=== PATIENT | female | born 1935 | race Two or more races ===

== ENCOUNTER → 2019-06-18 | Outpatient (CLI) | payer MEDICARE ==
[2019-06-18 10:03] LABS: Basophils # (auto) 0 uL; Basophils % (auto) 0.6 % (0.0-2.0); Eosinophils # (auto) 0.1 uL; Hematocrit 40.2 % (36.0-46.0); Hemoglobin 13.4 g/dL (12.2-16.2); Lymphocytes # (auto) 1.6 uL; Lymphocytes % (auto) 37.2 % (10.0-50.0); Mean Corpuscular Hemoglobin 29.9 pg (28.0-32.0); Mean Corpuscular Hgb Conc. 33.2 g/dL (32.0-36.0); Mean Corpuscular Volume 90.1 fL (80.0-100.0); Monocytes # (auto) 0.3 uL; Monocytes % (auto) 7.3 % (0.0-12.0); Neutrophils # (auto) 2.2 uL; Neutrophils % (auto) 51.9 % (37.0-80.0); Nucleated Red Blood Cells % 0.1 %; Platelet Count (auto) 120 10^3/uL (140-450); Red Blood Cells 4.47 10^6/uL (4.0-5.20); Red Cell Distribution Width 13.3 % (11.8-14.3); White Blood Cell 4.2 10^3/uL (4.4-10.8)
[2019-06-18 10:21] LABS: Potassium 4.5 mmol/L (3.5-5.1)
[2019-06-18 10:39] LABS: BUN/Creatinine Ratio 21.8; Bilirubin, Total 0.4 mg/dL (0.2-1.0); Calcium 9.6 mg/dL (8.5-10.1); Total Protein 7.8 g/dL (6.4-8.2)
[2019-06-18 10:50] LABS: INR 0.98 (0.9-1.15)
== END | disposition home or self-care (01) ==
LOC: LAB 09:28
DX: R91.1 Solitary pulmonary nodule (principal); B44.89 Other forms of aspergillosis; J67.9 Hypersensitivity pneumonitis due to unspecified organic dust; E78.5 Hyperlipidemia, unspecified
CPT/HCPCS: 36415; 80053; 83520; 85025; 85610; 85730; 86038; 86256

== ENCOUNTER → 2020-09-06 | Outpatient (CLI) | payer MEDICARE ==
[2020-09-06 09:22] LABS: Basophils # (auto) 0.2 10 ^3/uL (0-0.2); Basophils % (auto) 3.4 % (0.0-2.0); Eosinophils # (auto) 0.2 10 ^3/uL (0-0.8); Eosinophils % (auto) 3.3 % (0.0-7.0); Hematocrit 41.6 % (36.0-46.0); Hemoglobin 13.8 g/dL (12.2-16.2); Lymphocytes # (auto) 1.7 10 ^3/uL (0.4-5.4); Lymphocytes % (auto) 32.9 % (10.0-50.0); Mean Corpuscular Hemoglobin 29.4 pg (28.0-32.0); Monocytes # (auto) 0.4 10 ^3/uL (0-1.3); Monocytes % (auto) 7.2 % (0.0-12.0); Neutrophils # (auto) 2.7 10 ^3/uL (1.6-8.6); Neutrophils % (auto) 53.2 % (37.0-80.0); Nucleated Red Blood Cells % 0.1 %; Platelet Count (auto) 132 10^3/uL (140-450); Red Blood Cells 4.68 10^6/uL (4.0-5.20); Red Cell Distribution Width 13.5 % (11.8-14.3); White Blood Cell 5.1 10^3/uL (4.4-10.8)
[2020-09-06 09:32] LABS: Albumin 3.7 g/dL (3.4-5.0); Calcium 9.2 mg/dL (8.5-10.1); Potassium 4.2 mmol/L (3.5-5.1)
[2020-09-06 09:37] LABS: BUN/Creatinine Ratio 18.6; Bilirubin, Total 0.6 mg/dL (0.2-1.0); Total Protein 7.2 g/dL (6.4-8.2)
[2020-09-07 08:19] LABS: Urine Bacteria MANY /hpf (None Seen); Urine Blood Negative /uL (Negative); Urine Specific Gravity 1.014 (1.001-1.035); Urine WBC 57 /hpf (0 - 5)
[2020-09-07 08:52] LABS: Protein, Urine 10.6 mg/dL (0.0-11.9)
[2020-09-07 09:03] LABS: Micro Albumin 8.09 mg/L (0-30.0)
== END | disposition home or self-care (01) ==
LOC: LAB 08:54
PROVIDERS: ATTEND Internal Medicine
DX: I12.9 Hypertensive chronic kidney disease with stage 1 through stage 4 chronic kidney disease, or unspecified chronic kidney disease (principal); E11.22 Type 2 diabetes mellitus with diabetic chronic kidney disease; N18.9 Chronic kidney disease, unspecified; E11.65 Type 2 diabetes mellitus with hyperglycemia; E03.9 Hypothyroidism, unspecified; E78.49 Other hyperlipidemia; M85.80 Other specified disorders of bone density and structure, unspecified site; Z00.01 Encounter for general adult medical examination with abnormal findings
CPT/HCPCS: 36415; 80053; 80061; 81001; 82043; 82306; 82570; 83036; 84156; 84439; 84443; 85025

== ENCOUNTER → 2021-05-02 | Emergency (ER) | payer MEDICARE ==
[~2021-05-02] VITALS: Ht 160 cm; Wt 69.4 kg
[2021-05-02 14:03] VITALS: BP 163/58
[2021-05-02 15:16] LABS: Basophils # (auto) 0.1 10 ^3/uL (0-0.2); Basophils % (auto) 0.7 % (0.0-2.0); Eosinophils # (auto) 0.2 10 ^3/uL (0-0.8); Eosinophils % (auto) 2.3 % (0.0-7.0); Hematocrit 43.1 % (36.0-46.0); Hemoglobin 14.2 g/dL (12.2-16.2); Lymphocytes # (auto) 1.2 10 ^3/uL (0.4-5.4); Lymphocytes % (auto) 12.7 % (10.0-50.0); Mean Corpuscular Hemoglobin 29.4 pg (28.0-32.0); Mean Corpuscular Hgb Conc. 32.9 g/dL (32.0-36.0); Mean Corpuscular Volume 89.4 fL (80.0-100.0); Monocytes # (auto) 0.8 10 ^3/uL (0-1.3); Monocytes % (auto) 8.6 % (0.0-12.0); Neutrophils # (auto) 7.2 10 ^3/uL (1.6-8.6); Neutrophils % (auto) 75.7 % (37.0-80.0); Nucleated Red Blood Cells % 0.1 %; Red Blood Cells 4.82 10^6/uL (4.0-5.20); Red Cell Distribution Width 13.3 % (11.8-14.3); White Blood Cell 9.6 10^3/uL (4.4-10.8)
[2021-05-02 15:20] LABS: Albumin 3.9 g/dL (3.4-5.0); Calcium 9.1 mg/dL (8.5-10.1); Potassium 4.1 mmol/L (3.5-5.1)
[2021-05-02 15:34] LABS: BUN/Creatinine Ratio 16.8; Bilirubin, Total 0.6 mg/dL (0.2-1.0); CRP High Sensitivity 2.46 mg/dL (< 0.3); Total Protein 8.1 g/dL (6.4-8.2)
== END | disposition home or self-care (01) ==
LOC: ER 14:01
DX: J06.9 Acute upper respiratory infection, unspecified (principal); R05.9 Cough, unspecified; I10 Essential (primary) hypertension; E11.9 Type 2 diabetes mellitus without complications; Z90.89 Acquired absence of other organs
CPT/HCPCS: 36415; 71250; 80053; 82728; 83880; 84484; 85025; 86141

== ENCOUNTER 2021-08-21 06:20 | Outpatient (CLI) | payer MEDICARE | END 2021-08-21 06:30 | disposition home or self-care (01) | LOC: LAB 06:20 | PROVIDERS: ATTEND Pathology Anatomic Pathology & Clinical Pathology | DX: Z20.822 Contact with and (suspected) exposure to COVID-19 (principal) | CPT/HCPCS: C9803; U0003 ==

== ENCOUNTER → 2021-12-29 | Outpatient (CLI) | payer MEDICARE, MEDICAID ==
[2021-12-29 09:14] LABS: Basophils # (auto) 0 10 ^3/uL (0-0.2); Basophils % (auto) 0.7 % (0.0-2.0); Eosinophils # (auto) 0.1 10 ^3/uL (0-0.8); Eosinophils % (auto) 2.4 % (0.0-7.0); Hematocrit 40.7 % (36.0-46.0); Hemoglobin 12.9 g/dL (12.2-16.2); Lymphocytes # (auto) 1.9 10 ^3/uL (0.4-5.4); Lymphocytes % (auto) 34.4 % (10.0-50.0); Mean Corpuscular Hemoglobin 28.9 pg (28.0-32.0); Mean Corpuscular Hgb Conc. 31.7 g/dL (32.0-36.0); Mean Corpuscular Volume 91.2 fL (80.0-100.0); Monocytes # (auto) 0.4 10 ^3/uL (0-1.3); Monocytes % (auto) 7.2 % (0.0-12.0); Neutrophils # (auto) 3.1 10 ^3/uL (1.6-8.6); Neutrophils % (auto) 55.3 % (37.0-80.0); Nucleated Red Blood Cells % 0.3 %; Red Blood Cells 4.46 10^6/uL (4.0-5.20); White Blood Cell 5.6 10^3/uL (4.4-10.8)
[2021-12-29 09:20] LABS: Urine Bacteria FEW /hpf (None Seen); Urine Blood TRACE /uL (Negative); Urine Budding Yeast MANY /hpf (None Seen); Urine Specific Gravity 1.013 (1.001-1.035); Urine WBC 480 /hpf (0 - 5); Urine WBC Clumps PRESENT /hpf (None Seen)
[2021-12-29 09:43] LABS: Albumin 3.8 g/dL (3.4-5.0); Calcium 9.1 mg/dL (8.5-10.1); Potassium 4.2 mmol/L (3.5-5.1)
[2021-12-29 09:48] LABS: BUN/Creatinine Ratio 19.8; Bilirubin, Total 0.7 mg/dL (0.2-1.0); Total Protein 7.2 g/dL (6.4-8.2)
[2021-12-29 09:49] LABS: Protein, Urine 26.7 mg/dL (0.0-11.9)
== END | disposition home or self-care (01) ==
LOC: LAB 09:01
PROVIDERS: ATTEND Internal Medicine
DX: E11.22 Type 2 diabetes mellitus with diabetic chronic kidney disease (principal); I12.9 Hypertensive chronic kidney disease with stage 1 through stage 4 chronic kidney disease, or unspecified chronic kidney disease; N18.30 Chronic kidney disease, stage 3 unspecified; Z00.01 Encounter for general adult medical examination with abnormal findings
CPT/HCPCS: 36415; 80053; 80061; 81001; 82306; 82570; 83036; 84156; 84439; 84443; 85025

== ENCOUNTER → 2022-01-12 | Outpatient (CLI) | payer MEDICARE, MEDICAID ==
[2022-01-12 09:48] LABS: Basophils # (auto) 0.1 10 ^3/uL (0-0.2); Basophils % (auto) 0.7 % (0.0-2.0); Eosinophils # (auto) 0.5 10 ^3/uL (0-0.8); Eosinophils % (auto) 5.7 % (0.0-7.0); Hematocrit 40.2 % (36.0-46.0); Lymphocytes # (auto) 1.8 10 ^3/uL (0.4-5.4); Lymphocytes % (auto) 22.8 % (10.0-50.0); Mean Corpuscular Hemoglobin 29.2 pg (28.0-32.0); Mean Corpuscular Hgb Conc. 32.3 g/dL (32.0-36.0); Mean Corpuscular Volume 90.3 fL (80.0-100.0); Monocytes # (auto) 0.5 10 ^3/uL (0-1.3); Monocytes % (auto) 6.2 % (0.0-12.0); Neutrophils # (auto) 5.2 10 ^3/uL (1.6-8.6); Neutrophils % (auto) 64.6 % (37.0-80.0); Nucleated Red Blood Cells % 0.1 %; Red Blood Cells 4.45 10^6/uL (4.0-5.20); Red Cell Distribution Width 13.6 % (11.8-14.3); White Blood Cell 8.1 10^3/uL (4.4-10.8)
[2022-01-12 10:05] LABS: Urine Bacteria NONE SEEN /hpf (None Seen); Urine Blood Negative /uL (Negative); Urine Specific Gravity 1.014 (1.001-1.035); Urine WBC 1 /hpf (0 - 5)
[2022-01-12 10:13] LABS: BUN/Creatinine Ratio 18.3
[2022-01-12 11:30] LABS: Hepatitis B Surface Antibody Positive (Negative)
== END | disposition home or self-care (01) ==
LOC: LAB 09:35
PROVIDERS: ATTEND Internal Medicine
DX: N18.30 Chronic kidney disease, stage 3 unspecified (principal); N39.0 Urinary tract infection, site not specified; Z11.3 Encounter for screening for infections with a predominantly sexual mode of transmission
CPT/HCPCS: 36415; 80048; 81001; 85025; 86706; 87086; 87340; 87902

== ENCOUNTER 2022-02-18 17:55 | Inpatient (IN) | payer MEDICARE, MEDICAID ==
[~2022-02-18] VITALS: Ht 157.5 cm; Wt 67.3 kg
[2022-02-18] MEDS ORDERED: cefTRIAXone 1GM/50ML D5W 50 ML IV ONE (18:45)
[2022-02-18] MEDS ORDERED: SODIUM CHLORIDE 0.9% 1,000 ML IV ONE (18:45)
[2022-02-18 20:12] LABS: Urine Bacteria MOD /hpf (None Seen); Urine Blood Negative /uL (Negative); Urine Specific Gravity 1.008 (1.001-1.035); Urine WBC 424 /hpf (0 - 5); Urine WBC Clumps PRESENT /hpf (None Seen)
[2022-02-18 20:34] LABS: Basophils # (auto) 0 10 ^3/uL (0-0.2); Basophils % (auto) 0.6 % (0.0-2.0); Eosinophils # (auto) 0.1 10 ^3/uL (0-0.8); Eosinophils % (auto) 1.4 % (0.0-7.0); Hematocrit 40.8 % (36.0-46.0); Hemoglobin 13.5 g/dL (12.2-16.2); Mean Corpuscular Hemoglobin 29.3 pg (28.0-32.0); Mean Corpuscular Volume 88.9 fL (80.0-100.0); Monocytes # (auto) 0.6 10 ^3/uL (0-1.3); Monocytes % (auto) 11.4 % (0.0-12.0); Neutrophils # (auto) 2.3 10 ^3/uL (1.6-8.6); Neutrophils % (auto) 46.6 % (37.0-80.0); Nucleated Red Blood Cells % 0.2 %; Red Cell Distribution Width 13.5 % (11.8-14.3)
[2022-02-18 20:44] LABS: Calcium 9.1 mg/dL (8.5-10.1); Magnesium 1.5 mg/dL (1.6-2.6)
[2022-02-18 20:48] LABS: BUN/Creatinine Ratio 20.2; Bilirubin, Total 0.8 mg/dL (0.2-1.0); Total Protein 7.6 g/dL (6.4-8.2)
[2022-02-18] MEDS ORDERED: SODIUM CHLORIDE 0.9% 1,000 ML IV SCH (22:00)
[2022-02-18] MEDS ORDERED: HYDROcodone-ACET 5/325MG TAB PO PRN (22:00)
[2022-02-18] MEDS ORDERED: ACETAMINOPHEN 325 MG TAB PO PRN (22:00)
[2022-02-18] MEDS ORDERED: DOCUSATE SOD 100 MG CAP PO PRN (22:00)
[2022-02-18] MEDS: ACCU-CHEK COMFORT CURVE STRIP VI SCH (22:00)
[2022-02-18] MEDS ORDERED: ONDANSETRON HCL 4 MG/2 ML VIAL IV PRN (22:00)
[2022-02-18] MEDS ORDERED: DEXTROSE (50%) 50ML SYRG IV PRN (22:00)
[2022-02-18] MEDS: ERTAPENEM SOD INJ 1 GM in SODIUM CHL 0.9% 50 ML IV SCH (22:18)
[2022-02-18] MEDS ORDERED: NITROGLYCERIN 0.4 MG SL TAB SL PRN (22:45)
[2022-02-18] MEDS ORDERED: MORPHINE SULFATE INJ 2 MG/ml SYRG IV PRN (22:45)
[2022-02-19] MEDS: InsuLIN REG 1unit/0.01ml Soln (100units/ml) SC SCH ×5 (00:31→22:00)
[2022-02-19] MEDS: MAGNESIUM SULFATE 1GM/100ML 100 ML IV SCH ×2 (01:08→02:43)
[2022-02-19 01:33] VITALS: BP 164/89
[2022-02-19] MEDS: hydrALAZINE HCL 20 MG/ML VL IV PRN ×2 (02:44→21:53)
[2022-02-19] MEDS ORDERED: MAGNESIUM SULFATE 1GM/100ML 100 ML IV SCH (02:45)
[2022-02-19 05:08] VITALS: BP 121/64
[2022-02-19 05:38] LABS: Basophils # (auto) 0 10 ^3/uL (0-0.2); Basophils % (auto) 0.5 % (0.0-2.0); Eosinophils # (auto) 0 10 ^3/uL (0-0.8); Eosinophils % (auto) 0.7 % (0.0-7.0); Hematocrit 43.9 % (36.0-46.0); Hemoglobin 14.7 g/dL (12.2-16.2); Lymphocytes # (auto) 2.4 10 ^3/uL (0.4-5.4); Lymphocytes % (auto) 34.7 % (10.0-50.0); Mean Corpuscular Hemoglobin 29.9 pg (28.0-32.0); Mean Corpuscular Hgb Conc. 33.6 g/dL (32.0-36.0); Mean Corpuscular Volume 89.1 fL (80.0-100.0); Monocytes # (auto) 0.6 10 ^3/uL (0-1.3); Monocytes % (auto) 8.9 % (0.0-12.0); Neutrophils # (auto) 3.8 10 ^3/uL (1.6-8.6); Neutrophils % (auto) 55.2 % (37.0-80.0); Nucleated Red Blood Cells % 0.2 %; Red Blood Cells 4.93 10^6/uL (4.0-5.20); Red Cell Distribution Width 13.5 % (11.8-14.3); White Blood Cell 6.8 10^3/uL (4.4-10.8)
[2022-02-19 05:49] LABS: Potassium 3.6 mmol/L (3.5-5.1)
[2022-02-19 05:57] LABS: Albumin 4.1 g/dL (3.4-5.0); BUN/Creatinine Ratio 19.2; Bilirubin, Total 0.9 mg/dL (0.2-1.0); Calcium 8.9 mg/dL (8.5-10.1); Total Protein 7.9 g/dL (6.4-8.2)
[2022-02-19] MEDS: ACCU-CHEK COMFORT CURVE STRIP VI SCH ×4 (06:06→21:53)
[2022-02-19 09:00] VITALS: BP 125/56
[2022-02-19] MEDS: FAMOTIDINE (10MG/ML) 2ML VL IV SCH (10:06)
[2022-02-19 13:00] VITALS: BP 115/50
[2022-02-19 17:06] VITALS: BP 117/54
[2022-02-19] MEDS ORDERED: ALBUAER3 INH (17:56)
[2022-02-19] MEDS ORDERED: TIOTCAP PO (17:56)
[2022-02-19] MEDS ORDERED: GLIP10TA9 PO (17:56)
[2022-02-19] MEDS ORDERED: METF-370 PO (17:56)
[2022-02-19] MEDS ORDERED: GAB100C PO (17:56)
[2022-02-19] MEDS ORDERED: CLOP75TA70 PO (17:56)
[2022-02-19] MEDS ORDERED: ATOR10TA52 PO (17:56)
[2022-02-19] MEDS ORDERED: ISOS1TAB28 PO (17:56)
[2022-02-19] MEDS ORDERED: LEVO112T4 PO (17:56)
[2022-02-19] MEDS: ERTAPENEM SOD INJ 1 GM in SODIUM CHL 0.9% 50 ML IV SCH (18:29)
[2022-02-19 22:00] VITALS: BP 162/68
[2022-02-20 05:00] VITALS: BP 113/56
[2022-02-20] MEDS: ACCU-CHEK COMFORT CURVE STRIP VI SCH ×4 (06:21→21:42)
[2022-02-20] MEDS: InsuLIN REG 1unit/0.01ml Soln (100units/ml) SC SCH ×4 (06:24→21:44)
[2022-02-20 07:30] VITALS: BP 127/63
[2022-02-20] MEDS: FAMOTIDINE (10MG/ML) 2ML VL IV SCH (10:06)
[2022-02-20] MEDS ORDERED: GABAPENTIN 100 MG CAP PO ONE (10:30)
[2022-02-20] MEDS ORDERED: ACYCLOVIR 400 MG TAB PO ONE (10:30)
[2022-02-20] MEDS ORDERED: ISOSORBIDE MONONITRATE ER 60 MG TAB PO ONE (10:45)
[2022-02-20] MEDS ORDERED: LEVOTHYROXINE SODIUM 112 MCG TAB PO ONE (10:45)
[2022-02-20 12:33] VITALS: BP 124/57
[2022-02-20] MEDS: ACYCLOVIR 400 MG TAB PO SCH ×3 (14:16→21:32)
[2022-02-20 16:40] VITALS: BP 93/50
[2022-02-20] MEDS: ERTAPENEM SOD INJ 1 GM in SODIUM CHL 0.9% 50 ML IV SCH (18:11)
[2022-02-20] MEDS: GABAPENTIN 100 MG CAP PO SCH (21:31)
[2022-02-20 22:00] VITALS: BP 131/56
[2022-02-21 05:00] VITALS: BP 127/55
[2022-02-21] MEDS: ACYCLOVIR 400 MG TAB PO SCH ×4 (05:42→18:06)
[2022-02-21] MEDS: ACCU-CHEK COMFORT CURVE STRIP VI SCH ×3 (06:27→17:00)
[2022-02-21] MEDS: InsuLIN REG 1unit/0.01ml Soln (100units/ml) SC SCH ×3 (06:31→17:00)
[2022-02-21] MEDS ORDERED: LEVOTHYROXINE SODIUM 112 MCG TAB PO SCH (07:00)
[2022-02-21] MEDS: GABAPENTIN 100 MG CAP PO SCH (09:11)
[2022-02-21 09:18] VITALS: BP 124/65
[2022-02-21] MEDS ORDERED: ISOSORBIDE MONONITRATE ER 60 MG TAB PO SCH (10:00)
[2022-02-21] MEDS ORDERED: ACYC-163 PO (10:11)
[2022-02-21 12:51] VITALS: BP 95/57
[2022-02-21 16:14] VITALS: BP 101/66
[2022-02-21] MEDS: ERTAPENEM SOD INJ 1 GM in SODIUM CHL 0.9% 50 ML IV SCH (17:29)
== END 2022-02-21 18:25 | disposition home health service (06) | DRG 720 ==
LOC: ER 17:56 → OVERFLOW 22:44 → CENTRAL 23:45
PROVIDERS: ADMIT Nurse Practitioner Family; ATTEND Internal Medicine
PROC: 05H933Z Insertion of Infusion Device into Right Brachial Vein, Percutaneous Approach (ICD-10-PCS; principal; 2022-02-20)
PROC: B54MZZA Ultrasonography of Right Upper Extremity Veins, Guidance (ICD-10-PCS; 2022-02-20)
DX: A41.51 Sepsis due to Escherichia coli [E. coli] (principal); N17.0 Acute kidney failure with tubular necrosis; N39.0 Urinary tract infection, site not specified; E11.42 Type 2 diabetes mellitus with diabetic polyneuropathy; B02.9 Zoster without complications; E03.9 Hypothyroidism, unspecified; B96.20 Unspecified Escherichia coli [E. coli] as the cause of diseases classified elsewhere; E83.42 Hypomagnesemia; I10 Essential (primary) hypertension; J44.9 Chronic obstructive pulmonary disease, unspecified; N28.1 Cyst of kidney, acquired; Z16.12 Extended spectrum beta lactamase (ESBL) resistance; Z20.822 Contact with and (suspected) exposure to COVID-19; Z87.440 Personal history of urinary (tract) infections; Z88.6 Allergy status to analgesic agent
CPT/HCPCS: 36415; 71045; 72170; 73620; 76775; 80053; 81001; 82962; 83605; 83735; 84484; 85025; 87040; 87086; 87088; 87186; 93005; 93925; 96365; 97163; G0378; J0696; J1335; J1815; J3490

== ENCOUNTER → 2023-04-23 | Outpatient (CLI) | payer MEDICARE, MEDICAID ==
[~2023-04-23] MED LIST: ACYC1TAB2 PO; ALBUAER3 INH; ATOR10TA52 PO; CLOP75TA70 PO; GAB100C PO; GLIP10TA9 PO; ISOS1TAB28 PO; LEVO112T4 PO; METF-370 PO; TIOTCAP PO
[2023-04-23 11:32] LABS: Urine Bacteria MANY /hpf (None Seen); Urine Blood Negative /uL (Negative); Urine Clarity HAZY (Clear); Urine Protein, UAD Negative (Negative); Urine Specific Gravity 1.012 (1.001-1.035); Urine Urobilinogen Normal (Negative); Urine WBC 23 /hpf (0 - 5); Urine pH 6.5 (5.0-8.0)
[2023-04-23 11:33] LABS: Alanine Aminotransferase 18 U/L (7-40); Albumin 4.3 g/dL (3.2-4.8); Alkaline Phosphatase 70 U/L (46-116); Anion Gap 4 (5-15); Aspartate Aminotransferase 26 U/L (13-40); Bilirubin, Total 0.4 mg/dL (0.2-1.0); Blood Urea Nitrogen 14 mg/dL (9-23); Calcium 9.7 mg/dL (8.5-10.1); Carbon Dioxide 33 mmol/L (20-30); Chloride 102 mmol/L (98-107); Glucose 120 mg/dL (74-106); Potassium 4.1 mmol/L (3.5-5.1); Sodium 139 mmol/L (136-145); Total Protein 7.1 g/dL (5.7-8.2)
[2023-04-23 11:37] LABS: Urine Color Straw (Yellow)
[2023-04-23 11:38] LABS: Triglycerides 128 mg/dL (< 150)
[2023-04-23 11:39] LABS: LDL Cholesterol 65 mg/dL (< 100)
[2023-04-23 11:40] LABS: Cholesterol 120 mg/dL (< 200); HDL Cholesterol 38 mg/dL (40-59)
[2023-04-23 11:45] LABS: Creatinine, Urine 59.12 mg/dL (30.0-125.0)
== END | disposition home or self-care (01) ==
LOC: LAB 10:35
PROVIDERS: ATTEND Internal Medicine
DX: E11.22 Type 2 diabetes mellitus with diabetic chronic kidney disease (principal); N18.2 Chronic kidney disease, stage 2 (mild)
CPT/HCPCS: 36415; 80053; 80061; 81001; 82043; 82570; 83036; 84439; 84443

== ENCOUNTER → 2023-05-07 | Outpatient (CLI) | payer MEDICARE, MEDICAID | END | disposition home or self-care (01) | LOC: XYW 11:56 | PROVIDERS: ATTEND Internal Medicine | DX: R06.02 Shortness of breath (principal) | CPT/HCPCS: 71045 ==

== ENCOUNTER → 2023-07-10 | Outpatient (CLI) | payer MEDICARE, MEDICAID ==
[2023-07-10 09:09] LABS: Basophils # (auto) 0 10 ^3/uL (0-0.2); Basophils % (auto) 0.5 % (0.0-2.0); Eosinophils # (auto) 0.1 10 ^3/uL (0-0.8); Eosinophils % (auto) 2.6 % (0.0-7.0); Hematocrit 41.7 % (36.0-46.0); Hemoglobin 13.6 g/dL (12.2-16.2); Lymphocytes # (auto) 1.8 10 ^3/uL (0.4-5.4); Lymphocytes % (auto) 35.7 % (10.0-50.0); Mean Corpuscular Hemoglobin 28.9 pg (28.0-32.0); Mean Corpuscular Hgb Conc. 32.6 g/dL (32.0-36.0); Mean Corpuscular Volume 88.7 fL (80.0-100.0); Monocytes # (auto) 0.4 10 ^3/uL (0-1.3); Monocytes % (auto) 7.5 % (0.0-12.0); Neutrophils # (auto) 2.7 10 ^3/uL (1.6-8.6); Neutrophils % (auto) 53.7 % (37.0-80.0); Nucleated Red Blood Cells % 0.1 %; Red Cell Distribution Width 13.5 % (11.8-14.3); White Blood Cell 5.1 10^3/uL (4.4-10.8)
[2023-07-10 09:13] LABS: Chloride 103 mmol/L (98-107); Sodium 141 mmol/L (136-145)
[2023-07-10 09:14] LABS: Anion Gap 7 (5-15); Calcium 9.8 mg/dL (8.5-10.1); Carbon Dioxide 31 mmol/L (20-30)
[2023-07-10 09:19] LABS: BUN/Creatinine Ratio 14.9 (10.0-20.0); Blood Urea Nitrogen 14 mg/dL (9-23); Glucose 134 mg/dL (74-106); Triglycerides 202 mg/dL (< 150)
[2023-07-10 09:20] LABS: LDL Cholesterol 67 mg/dL (< 100)
[2023-07-10 09:21] LABS: Cholesterol 133 mg/dL (< 200); HDL Cholesterol 41 mg/dL (40-59)
[2023-07-11 09:29] LABS: Urine Bacteria MANY /hpf (None Seen); Urine Blood 1+ /uL (Negative); Urine Clarity CLOUDY (Clear); Urine Color Straw (Yellow); Urine Protein, UAD Negative (Negative); Urine Specific Gravity 1.016 (1.001-1.035); Urine Urobilinogen Normal (Negative); Urine WBC 891 /hpf (0 - 5); Urine WBC Clumps PRESENT /hpf (None Seen)
== END | disposition home or self-care (01) ==
LOC: LAB 08:53
PROVIDERS: ATTEND Internal Medicine
DX: E11.22 Type 2 diabetes mellitus with diabetic chronic kidney disease (principal); N18.30 Chronic kidney disease, stage 3 unspecified; E78.5 Hyperlipidemia, unspecified
CPT/HCPCS: 36415; 80048; 80061; 81001; 82306; 83036; 84439; 84443; 85025

== ENCOUNTER 2023-07-18 11:27 | Inpatient (IN) | payer MEDICARE, MEDICAID ==
[~2023-07-18] VITALS: Ht 160 cm; Wt 69.0 kg
[2023-07-18] MEDS: cefTRIAXone 1GM/50ML D5W 50 ML IV ONE (13:45)
[2023-07-18] MEDS ORDERED: MORPHINE SULFATE INJ 2 MG/ml SYRG IV PRN (13:45)
[2023-07-18] MEDS ORDERED: NITROGLYCERIN 0.4 MG SL TAB SL PRN (13:45)
[2023-07-18] MEDS ORDERED: ONDANSETRON HCL 4 MG/2 ML VIAL IV PRN (14:00)
[2023-07-18] MEDS ORDERED: DEXTROSE (50%) 50ML SYRG IV PRN (14:00)
[2023-07-18] MEDS ORDERED: ACETAMINOPHEN 500 MG TAB PO PRN (14:00)
[2023-07-18 14:40] LABS: Basophils # (auto) 0 10 ^3/uL (0-0.2); Basophils % (auto) 0.2 % (0.0-2.0); Eosinophils # (auto) 0.1 10 ^3/uL (0-0.8); Eosinophils % (auto) 0.7 % (0.0-7.0); Hematocrit 39.5 % (36.0-46.0); Hemoglobin 12.9 g/dL (12.2-16.2); Lymphocytes # (auto) 0.9 10 ^3/uL (0.4-5.4); Lymphocytes % (auto) 7.5 % (10.0-50.0); Mean Corpuscular Hemoglobin 28.5 pg (28.0-32.0); Mean Corpuscular Hgb Conc. 32.6 g/dL (32.0-36.0); Mean Corpuscular Volume 87.5 fL (80.0-100.0); Monocytes # (auto) 0.5 10 ^3/uL (0-1.3); Monocytes % (auto) 3.8 % (0.0-12.0); Neutrophils % (auto) 87.8 % (37.0-80.0); Red Blood Cells 4.51 10^6/uL (4.0-5.20); Red Cell Distribution Width 13.9 % (11.8-14.3); White Blood Cell 12.6 10^3/uL (4.4-10.8)
[2023-07-18 15:00] LABS: Alanine Aminotransferase 16 U/L (7-40); Albumin 4.3 g/dL (3.2-4.8); Alkaline Phosphatase 63 U/L (46-116); Anion Gap 6 (5-15); Aspartate Aminotransferase 18 U/L (13-40); BUN/Creatinine Ratio 16.3 (10.0-20.0); Bilirubin, Total 0.9 mg/dL (0.2-1.0); Blood Urea Nitrogen 16 mg/dL (9-23); Calcium 9.4 mg/dL (8.5-10.1); Carbon Dioxide 29 mmol/L (20-30); Chloride 97 mmol/L (98-107); Glucose 202 mg/dL (74-106); Sodium 132 mmol/L (136-145); Total Protein 7.3 g/dL (5.7-8.2)
[2023-07-18] MEDS: InsuLIN REG 1unit/0.01ml Soln (100units/ml) SC SCH (17:00)
[2023-07-18 17:05] VITALS: BP 146/71; PULSE 71; RESP 18; TEMP 98.7; O2SAT 87
[2023-07-18] MEDS: FAMOTIDINE (10MG/ML) 2ML VL IV SCH (18:30)
[2023-07-18] MEDS: ACCU-CHEK COMFORT CURVE STRIP VI SCH (18:30)
[2023-07-18] MEDS: AZITHROMYCIN 500MG/ 250ML 250 ML IV SCH (18:33)
[2023-07-18 18:48] VITALS: PULSE 73; RESP 18; O2SAT 97
[2023-07-18] MEDS: ALBUTEROL SULF 2.5 MG/0.5ML(0.5%) NEB SOLN NEB SCH (18:48)
[2023-07-18] MEDS: IPRATROPIUM BROM 0.5 MG/2.5ML INH SOL NEB SCH (18:48)
[2023-07-18 18:50] VITALS: BP 162/74; PULSE 73; RESP 18; TEMP 98.7; O2SAT 97
[2023-07-18 18:54] VITALS: PULSE 77; RESP 20; O2SAT 99
[2023-07-18 20:00] VITALS: BP 162/74; PULSE 88; RESP 18; TEMP 98.7
[2023-07-18 21:57] VITALS: BP 162/74; PULSE 88; RESP 18; TEMP 98.7; O2SAT 97
[2023-07-18] MEDS: POTASSIUM CHL 20 Meq TABLET PO ONE (23:49)
[2023-07-18] MEDS: FUROSEMIDE 20 MG/2 ML VIAL IV ONE (23:50)
[2023-07-18] MEDS: LISINOPRIL 5 MG TAB PO ONE (23:50)
[2023-07-19] VITALS (12 sets, daily range): BP systolic 104–119; BP diastolic 45–66; PULSE 67–96; RESP 16–18; TEMP 97.7–98.8; O2SAT 91–100
[2023-07-19 01:20] LABS: COVID19 ANTIGEN SOFIA FIA NEGATIVE (NEGATIVE)
[2023-07-19 01:25] LABS: Rapid Influenza A Negative (Negative); Rapid Influenza B Negative (Negative)
[2023-07-19 03:37] LABS: Urine Bacteria NONE SEEN /hpf (None Seen); Urine Blood Negative /uL (Negative); Urine Clarity Clear (Clear); Urine Protein, UAD Negative (Negative); Urine Specific Gravity 1.006 (1.001-1.035); Urine Urobilinogen Normal (Negative); Urine WBC 7 /hpf (0 - 5)
[2023-07-19 03:44] LABS: Urine Color STRAW (Yellow)
[2023-07-19 06:06] LABS: Basophils # (auto) 0 10 ^3/uL (0-0.2); Basophils % (auto) 0.3 % (0.0-2.0); Eosinophils # (auto) 0.3 10 ^3/uL (0-0.8); Eosinophils % (auto) 2.4 % (0.0-7.0); Hematocrit 37.8 % (36.0-46.0); Hemoglobin 12.5 g/dL (12.2-16.2); Lymphocytes # (auto) 1.4 10 ^3/uL (0.4-5.4); Lymphocytes % (auto) 13.3 % (10.0-50.0); Mean Corpuscular Hemoglobin 28.8 pg (28.0-32.0); Mean Corpuscular Hgb Conc. 33.1 g/dL (32.0-36.0); Mean Corpuscular Volume 87.1 fL (80.0-100.0); Monocytes # (auto) 0.6 10 ^3/uL (0-1.3); Monocytes % (auto) 5.5 % (0.0-12.0); Neutrophils # (auto) 8.1 10 ^3/uL (1.6-8.6); Neutrophils % (auto) 78.5 % (37.0-80.0); Nucleated Red Blood Cells % 0.1 %; Red Blood Cells 4.35 10^6/uL (4.0-5.20); Red Cell Distribution Width 13.5 % (11.8-14.3); White Blood Cell 10.3 10^3/uL (4.4-10.8)
[2023-07-19 06:19] LABS: Anion Gap 5 (5-15); Calcium 9.3 mg/dL (8.7-10.4); Carbon Dioxide 32 mmol/L (20-30); Chloride 98 mmol/L (98-107); Sodium 135 mmol/L (136-145)
[2023-07-19 06:25] LABS: BUN/Creatinine Ratio 17.2 (10.0-20.0); Blood Urea Nitrogen 17 mg/dL (9-23); Glucose 107 mg/dL (74-106)
[2023-07-19 06:26] LABS: Magnesium 1.3 mg/dL (1.6-2.6)
[2023-07-19] MEDS: LEVOTHYROXINE SODIUM 112 MCG TAB PO SCH (06:26)
[2023-07-19] MEDS: GABAPENTIN 100 MG CAP PO SCH (09:00)
[2023-07-19] MEDS: cefTRIAXone 1GM/50ML D5W 50 ML IV SCH (09:00)
[2023-07-19] MEDS: LISINOPRIL 5 MG TAB PO SCH (09:01)
[2023-07-19] MEDS: POTASSIUM CHL 20 Meq TABLET PO SCH (11:30)
[2023-07-19] MEDS: AZITHROMYCIN 250 MG TAB PO SCH (11:31)
[2023-07-19] MEDS: FUROSEMIDE 40 MG TAB PO SCH (11:31)
[2023-07-19] MEDS: MAGNESIUM SULFATE 1GM/100ML 100 ML IV SCH (11:33)
[2023-07-19] MEDS: FAMOTIDINE 20 MG TAB PO SCH (11:35)
[2023-07-20] VITALS (15 sets, daily range): BP systolic 115–145; BP diastolic 45–70; PULSE 84–99; RESP 16–19; TEMP 97.8–99.2; O2SAT 92–99
[2023-07-20 05:30] LABS: Chloride 101 mmol/L (98-107); Potassium 4.4 mmol/L (3.5-5.1); Sodium 137 mmol/L (136-145)
[2023-07-20 05:31] LABS: Anion Gap 4 (5-15); Calcium 8.8 mg/dL (8.7-10.4); Carbon Dioxide 32 mmol/L (20-30)
[2023-07-20 05:36] LABS: BUN/Creatinine Ratio 20.4 (10.0-20.0); Blood Urea Nitrogen 21 mg/dL (9-23); Glucose 174 mg/dL (74-106)
[2023-07-20 05:37] LABS: Magnesium 1.9 mg/dL (1.6-2.6)
[2023-07-20] MEDS: ADENOSINE 58 MG in GIVE UN-DILUTED 0 ML IV ONE (08:36)
[2023-07-21] VITALS (12 sets, daily range): BP systolic 126–158; BP diastolic 57–67; PULSE 85–105; RESP 16–18; TEMP 98–99.2; O2SAT 93–99
[2023-07-21] MEDS: LEVOTHYROXINE SODIUM 100 MCG TAB PO SCH (06:34)
[2023-07-21 07:23] LABS: Chloride 100 mmol/L (98-107); Potassium 4.9 mmol/L (3.5-5.1); Sodium 134 mmol/L (136-145)
[2023-07-21 07:24] LABS: Anion Gap 6 (5-15); Calcium 9.1 mg/dL (8.7-10.4); Carbon Dioxide 28 mmol/L (20-30)
[2023-07-21 07:29] LABS: BUN/Creatinine Ratio 16.5 (10.0-20.0); Blood Urea Nitrogen 14 mg/dL (9-23); Glucose 164 mg/dL (74-106)
[2023-07-21] MEDS ORDERED: FUROSEMIDE 20 MG TAB PO ONE (09:45)
[2023-07-21] MEDS: metFORMIN HYDROCHLORIDE 500 MG TAB PO ONE (10:00)
[2023-07-21 10:11] LABS: Base Excess 2.1 mmol/L (-2.0-2.0)
[2023-07-21] MEDS: CLOPIDOGREL BISULFATE 75 MG TAB PO SCH (11:10)
[2023-07-21] MEDS: ISOSORBIDE MONONITRATE ER 60 MG TAB PO SCH (11:12)
[2023-07-21] MEDS: FUROSEMIDE 20 MG TAB PO ONE (12:28)
[2023-07-21] MEDS: metFORMIN HYDROCHLORIDE 500 MG TAB PO SCH (18:00)
[2023-07-21] MEDS: ATORVASTATIN 20 MG TAB PO SCH (21:49)
[2023-07-22] VITALS (8 sets, daily range): BP systolic 115–133; BP diastolic 61–82; PULSE 84–99; RESP 16–18; TEMP 97.3–98.5; O2SAT 95–100
[2023-07-22] MEDS: LEVOTHYROXINE SODIUM 100 MCG TAB PO SCH (06:29)
[2023-07-22 07:16] LABS: Chloride 101 mmol/L (98-107); Potassium 5.2 mmol/L (3.5-5.1); Sodium 135 mmol/L (136-145)
[2023-07-22 07:17] LABS: Anion Gap 4 (5-15); Carbon Dioxide 30 mmol/L (20-30)
[2023-07-22 07:18] LABS: Calcium 9.7 mg/dL (8.5-10.1)
[2023-07-22 07:22] LABS: Glucose 156 mg/dL (74-106)
[2023-07-22 07:23] LABS: BUN/Creatinine Ratio 12.6 (10.0-20.0); Blood Urea Nitrogen 12 mg/dL (9-23)
[2023-07-22] MEDS: FUROSEMIDE 20 MG TAB PO ONE (10:40)
[2023-07-22] MEDS ORDERED: FURO1TAB33 PO (12:17)
[2023-07-22] MEDS ORDERED: LISI-275 PO (12:17)
== END 2023-07-22 15:15 | disposition home or self-care (01) | DRG 194 ==
LOC: TELE-CENTR 16:22
PROVIDERS: ADMIT Internal Medicine; ATTEND Internal Medicine Geriatric Medicine
DX: I11.0 Hypertensive heart disease with heart failure (principal); J96.21 Acute and chronic respiratory failure with hypoxia; E11.42 Type 2 diabetes mellitus with diabetic polyneuropathy; N39.0 Urinary tract infection, site not specified; E78.5 Hyperlipidemia, unspecified; E03.9 Hypothyroidism, unspecified; B96.20 Unspecified Escherichia coli [E. coli] as the cause of diseases classified elsewhere; J44.9 Chronic obstructive pulmonary disease, unspecified; I50.31 Acute diastolic (congestive) heart failure; Z20.822 Contact with and (suspected) exposure to COVID-19; Z88.6 Allergy status to analgesic agent; Z79.899 Other long term (current) drug therapy; Z87.440 Personal history of urinary (tract) infections
CPT/HCPCS: 36415; 36600; 71045; 78452; 80048; 80053; 81001; 82805; 82962; 83735; 83880; 84443; 84484; 85025; 87040; 87086; 87426; 87804; 93017; 93306; 94640; G0378; J0153; J1815; J3490

== ENCOUNTER → 2024-06-23 | Outpatient (CLI) | payer MEDICARE, MEDICAID ==
[~2024-06-23] MED LIST changes: +FURO1TAB33 PO; +LISI-275 PO
[2024-06-23 12:41] LABS: Basophils # (auto) 0 10 ^3/uL (0-0.2); Basophils % (auto) 0.4 % (0.0-2.0); Eosinophils # (auto) 0.1 10 ^3/uL (0-0.8); Eosinophils % (auto) 2.9 % (0.0-7.0); Hematocrit 39.6 % (36.0-46.0); Hemoglobin 13.1 g/dL (12.2-16.2); Lymphocytes # (auto) 2.2 10 ^3/uL (0.4-5.4); Lymphocytes % (auto) 43.3 % (10.0-50.0); Mean Corpuscular Hemoglobin 29.2 pg (28.0-32.0); Mean Corpuscular Hgb Conc. 33.1 g/dL (32.0-36.0); Mean Corpuscular Volume 88.1 fL (80.0-100.0); Monocytes # (auto) 0.4 10 ^3/uL (0-1.3); Monocytes % (auto) 7.6 % (0.0-12.0); Neutrophils # (auto) 2.3 10 ^3/uL (1.6-8.6); Neutrophils % (auto) 45.8 % (37.0-80.0); Nucleated Red Blood Cells % 0.3 %; Platelet Count (auto) 139 10^3/uL (140-450); Red Blood Cells 4.49 10^6/uL (4.0-5.20); White Blood Cell 5.1 10^3/uL (4.4-10.8)
[2024-06-23 12:53] LABS: Urine Bacteria MOD /hpf (None Seen); Urine Blood 1+ /uL (Negative); Urine Clarity Turbid (Clear); Urine Color Colorless (Yellow); Urine Protein, UAD Negative (Negative); Urine Specific Gravity 1.015 (1.001-1.035); Urine Squamous Epithelial Cell FEW /hpf (<5); Urine Urobilinogen Normal (Negative); Urine WBC 247 /HPF (0-5); Urine WBC Clumps PRESENT /hpf (None Seen)
[2024-06-23 12:56] LABS: Alanine Aminotransferase 19 U/L (7-40); Albumin 4.6 g/dL (3.2-4.8); Alkaline Phosphatase 81 U/L (46-116); Anion Gap 7 (5-15); Aspartate Aminotransferase 20 U/L (13-40); BUN/Creatinine Ratio 17.3 (10.0-20.0); Bilirubin, Total 0.4 mg/dL (0.2-1.0); Blood Urea Nitrogen 19 mg/dL (9-23); Calcium 10.1 mg/dL (8.7-10.4); Carbon Dioxide 32 mmol/L (20-31); Chloride 101 mmol/L (98-107); Glucose 135 mg/dL (74-106); Sodium 140 mmol/L (136-145); Total Protein 7.1 g/dL (5.7-8.2)
== END | disposition home or self-care (01) ==
LOC: LAB 11:21
PROVIDERS: ATTEND Internal Medicine
DX: E03.9 Hypothyroidism, unspecified (principal); Z79.899 Other long term (current) drug therapy
CPT/HCPCS: 36415; 80053; 81001; 83036; 84439; 84443; 85025; 87086; 87088; 87186

== ENCOUNTER → 2024-07-14 | Outpatient (CLI) | payer MEDICARE, MEDICAID ==
[2024-07-14 11:36] LABS: Basophils # (auto) 0 10 ^3/uL (0-0.2); Basophils % (auto) 0.5 % (0.0-2.0); Eosinophils # (auto) 0.2 10 ^3/uL (0-0.8); Eosinophils % (auto) 2.4 % (0.0-7.0); Hematocrit 42.3 % (36.0-46.0); Hemoglobin 13.8 g/dL (12.2-16.2); Lymphocytes # (auto) 2.1 10 ^3/uL (0.4-5.4); Lymphocytes % (auto) 29.4 % (10.0-50.0); Mean Corpuscular Hemoglobin 28.8 pg (28.0-32.0); Mean Corpuscular Hgb Conc. 32.7 g/dL (32.0-36.0); Mean Corpuscular Volume 88.1 fL (80.0-100.0); Monocytes # (auto) 0.4 10 ^3/uL (0-1.3); Monocytes % (auto) 5.3 % (0.0-12.0); Neutrophils # (auto) 4.5 10 ^3/uL (1.6-8.6); Neutrophils % (auto) 62.4 % (37.0-80.0); Nucleated Red Blood Cells % 0.1 %; Platelet Count (auto) 150 10^3/uL (140-450); Red Cell Distribution Width 14.1 % (11.8-14.3); White Blood Cell 7.2 10^3/uL (4.4-10.8); Wright Stain Ready for Review
== END | disposition home or self-care (01) ==
LOC: LAB 11:11
PROVIDERS: ATTEND Internal Medicine
DX: D69.6 Thrombocytopenia, unspecified (principal)
CPT/HCPCS: 36415; 85025; 86703; 87340; 87902